=== PATIENT | female | born 1940 | race Caucasian/White ===

== ENCOUNTER 2018-10-26 22:08 | Inpatient (IN) | payer MEDICARE, MEDICAID ==
[~2018-10-26] VITALS: Ht 165.1 cm; Wt 62.6 kg
--- NOTE | 2018-10-26 22:30 | NUR ---
PATIENT BIB RA FROM HOME FOR C/O DIZZINESS THAT STARTED 1500 TODAY WITH NAUSEA AND ANXIETY. PATIENT STATES SHE WILL BE GOING TO [facility] FOR COLONSCOPY IN THE AM AND STARTED BOWEL PREP AT 1300 TODAY. PATIENT AMBULATED TO [facility] WITH ASSIST. ROBER ACKERMAN,SOB.
[2018-10-26] MEDS ORDERED: ONDANSETRON 4 MG/2 ML VIAL ONE (22:37)
[2018-10-26 22:43] LABS: BASOPHILS % (AUTO) 0.3 % (0.0-2.0); EOSINOPHILS % (AUTO) 0.2 % (0.0-7.0); HEMATOCRIT 40.5 % (31.2-41.9); HEMOGLOBIN 14.1 g/dL (10.9-14.3); LYMPHOCYTES # (AUTO) 1.9 K/uL (20.0-40.0); LYMPHOCYTES % (AUTO) 17.8 % (20.5-51.5); MEAN CORPUSCULAR HEMOGLOBIN 29.7 uug (24.7-32.8); MEAN CORPUSCULAR HGB CONC 35 g/dL (32.3-35.6); MEAN CORPUSCULAR VOLUME 85.5 fL (75.5-95.3); MONOCYTES # (AUTO) 0.9 K/uL (2.0-10.0); MONOCYTES % (AUTO) 8.2 % (0.0-11.0); NEUTROPHILS # (AUTO) 8.1 K/uL (1.8-8.9); NEUTROPHILS % (AUTO) 73.5 % (38.5-71.5); PLATELET COUNT (AUTO) 291 K/uL (179-408); RED BLOOD CELL COUNT(AUTO) 4.74 MIL/uL (3.63-4.92)
[2018-10-26] MEDS ORDERED: ONDANSETRON 4 MG/2 ML VIAL IV ONE (22:45)
[2018-10-26] MEDS ORDERED: LORAZEPAM 2 MG/1 ML VIAL IV ONE (22:45)
[2018-10-26] MEDS ORDERED: IV NORMAL SALINE 1000 ML BAG IV ONE (22:45)
[2018-10-26] MEDS ORDERED: LORAZEPAM 2 MG/1 ML VIAL ONE (22:47)
[2018-10-26 22:52] LABS: CARBON DIOXIDE 19 mmol/L (21-32); CHLORIDE 87 mmol/L (98-107); CREATININE 1.5 mg/dL (0.6-1.3); GLUCOSE 136 mg/dL (74-106); UREA NITROGEN, BLOOD 10 mg/dL (7-18)
[2018-10-26 22:53] LABS: POTASSIUM 2.8 mmol/L (3.5-5.1)
[2018-10-26 22:58] LABS: ALANINE AMINOTRANSFERASE 21 U/L (14-59); ALKALINE PHOSPHATASE 102 U/L (50-136); ASPARTATE AMINOTRANSFERASE 20 U/L (15-37); BILIRUBIN,DIRECT 0.3 mg/dL (0.0-0.2); BILIRUBIN,TOTAL 1.6 mg/dL (0.2-1.0); LIPASE 178 U/L (73-393); TOTAL PROTEIN, SERUM 7.8 g/dL (6.4-8.2)
[2018-10-26] MEDS ORDERED: POTASSIUM CHLORIDE 50 ML ONE (23:17)
[2018-10-26] MEDS: POTASSIUM CHLORIDE 50 ML IV SCH (23:18)
[2018-10-26] MEDS ORDERED: AMLO10TA7 PO (23:53)
[2018-10-26] MEDS ORDERED: CAND1TAB14 PO (23:53)
[2018-10-26] MEDS ORDERED: METH5TAB6 PO (23:53)
--- NOTE | 2018-10-27 00:07 | NUR ---
PAGED EPPIC PANEL. WAITING FOR CALL BACK FROM LUIS BOYD PATIENT EXPERIENCE COORDINATOR
[2018-10-27] MEDS: POTASSIUM CHLORIDE 50 ML IV SCH ×4 (00:11→02:37)
[2018-10-27] MEDS ORDERED: POTASSIUM CHLORIDE 150 ML ONE (00:13)
--- NOTE | 2018-10-27 00:39 | NUR ---
2nd call made out to [facility] to page Dr. Truong
--- NOTE | 2018-10-27 00:41 | NUR ---
DR SHIPLEY SPEAKING WITH DR MADRID
--- NOTE | 2018-10-27 01:25 | NUR ---
3RD AND 4TH BAG OF 10MEG KCL IVPB WAS GIVEN TO 3RD FLOOR NURSE GRACE TO FINISHED INFUSION.
--- NOTE | 2018-10-27 01:30 | NUR ---
ADMITTED PATIENT ON TELE FLOOR, UNDER THE CARE OF DR. KENT. BELONGING LIST DONE. PATIENT REFUSED IV KCL, COMPLAIN OF IV SITE PAIN, DISCONTINUE THE LEFT AC IV LINE, REINSERTED LEFT HAND. PATIENT ALERT WITH ANXIETY. CONT TO MONITOR.
[2018-10-27 02:00] VITALS: BP 125/71
[2018-10-27] MEDS ORDERED: ACETAMINOPHEN 325 MG TABLET PO PRN (02:00)
[2018-10-27] MEDS ORDERED: MORPHINE SULFATE 2 MG/1 ML DISP.SYRIN IV PRN (02:00)
[2018-10-27] MEDS ORDERED: ZOLPIDEM 5 MG TABLET PO PRN (02:00)
[2018-10-27] MEDS ORDERED: ONDANSETRON 4 MG/2 ML VIAL IV PRN (02:00)
[2018-10-27] MEDS ORDERED: POTASSIUM CHLORIDE 20 MEQ in IV NS 1000 ML 1,000 ML IV PRN (02:00)
[2018-10-27] MEDS ORDERED: ENALAPRILAT DIHYDRATE 1.25 MG/1 ML VIAL IV PRN (02:00)
--- NOTE | 2018-10-27 02:37 | NUR ---
NOTIFY DR. KENT THAT PATIENT REFUSED IV KCL 3RD & 4TH BAG. MD ORDER DISCONTINUE.
[2018-10-27 05:51] LABS: BASOPHILS % (AUTO) 0.1 % (0.0-2.0); EOSINOPHILS % (AUTO) 0.1 % (0.0-7.0); HEMATOCRIT 36.9 % (31.2-41.9); LYMPHOCYTES # (AUTO) 0.9 K/uL (20.0-40.0); LYMPHOCYTES % (AUTO) 11.4 % (20.5-51.5); MEAN CORPUSCULAR HEMOGLOBIN 29.9 uug (24.7-32.8); MEAN CORPUSCULAR HGB CONC 35 g/dL (32.3-35.6); MONOCYTES # (AUTO) 0.3 K/uL (2.0-10.0); MONOCYTES % (AUTO) 3.7 % (0.0-11.0); NEUTROPHILS % (AUTO) 84.7 % (38.5-71.5); PLATELET COUNT (AUTO) 227 K/uL (179-408); RED BLOOD CELL COUNT(AUTO) 4.35 MIL/uL (3.63-4.92); WHITE BLOOD COUNT (AUTO) 8.3 K/uL (3.8-11.8)
[2018-10-27 06:05] LABS: ALANINE AMINOTRANSFERASE 17 U/L (14-59); ALKALINE PHOSPHATASE 93 U/L (50-136); ASPARTATE AMINOTRANSFERASE 16 U/L (15-37); BILIRUBIN,TOTAL 1.3 mg/dL (0.2-1.0); CARBON DIOXIDE 26 mmol/L (21-32); CHLORIDE 95 mmol/L (98-107); GLUCOSE 123 mg/dL (74-106); MAGNESIUM 1.8 mg/dL (1.8-2.4); PHOSPHOROUS 3.7 mg/dL (2.5-4.9); POTASSIUM 3.4 mmol/L (3.5-5.1); TOTAL PROTEIN, SERUM 6.7 g/dL (6.4-8.2); UREA NITROGEN, BLOOD 8 mg/dL (7-18)
[2018-10-27 06:17] LABS: IRON, SERUM 66 ug/dL (50-175)
[2018-10-27 06:30] VITALS: BP 121/49
[2018-10-27] MEDS ORDERED: PANTOPRAZOLE SODIUM 40 MG TABLET.DR PO SCH (07:00)
[2018-10-27] MEDS ORDERED: POTASSIUM CHLORIDE 20 MEQ TAB.PRT.SR PO ONE (08:15)
[2018-10-27] MEDS ORDERED: METHIMAZOLE 5 MG TABLET PO SCH (09:00)
[2018-10-27 10:10] LABS: *BILIRUBIN,URIN NEGATIVE (NEGATIVE); *CLARITY,URINE CLEAR (CLEAR); *COLOR,URINE LIGHT YELLOW (YELLOW); *KETONES,URINE NEGATIVE (NEGATIVE); *UROBILINOGEN,URINE 0.2 E.U./dl (NORMAL); LEUKOCYTE ESTERASE ,URINE TRACE (NEGATIVE); NITRITE, URINE NEGATIVE (NEGATIVE); UGLUCOSE NEGATIVE (NEGATIVE)
[2018-10-27 10:11] LABS: *BLOOD, URINE TRACE (NEGATIVE)
[2018-10-27 10:20] LABS: BACTERIA,URINE NONE SEEN /HPF (NONE SEEN); RBC,URINE 0-3 /HPF (0-3); SQUAMOUS EPITHELIAL CELL,UR FEW /HPF (NONE SEEN); WBC,URINE 0-3 /HPF (0-3)
[2018-10-27] MEDS ORDERED: CEphaleXIN 500 MG CAPSULE PO SCH (11:00)
[2018-10-27 11:40] VITALS: BP 116/57
[2018-10-27] MEDS ORDERED: CEPH-570 PO (14:26)
--- NOTE | 2018-10-27 15:21 | NUR ---
Patient alert and oriented, no distress noted or complaints of pain. Tolerating regular diet, began at lunch time. No nausea/vomiting. Patient ambulatory with standby assist, steady. Keflex antibiotic given today, urine sample sent. 40mEq potassium given to replace K 3.4. Discharge instructions reviewed with patient, verbalized understanding. IV access and wristband removed. Going home via private car with brother.
[2018-10-27] MEDS ORDERED: AMLODIPINE 10 MG TABLET PO SCH (21:00)
== END 2018-10-27 15:25 | disposition home or self-care (01) | DRG 641 ==
LOC: ER 22:08 → TELE3 10-27 00:46
PROVIDERS: ADMIT Internal Medicine; ATTEND Nurse Practitioner Acute Care
DX: E87.6 Hypokalemia (principal); N39.0 Urinary tract infection, site not specified; E87.0 Hyperosmolality and hypernatremia; T50.2X5A Adverse effect of carbonic-anhydrase inhibitors, benzothiadiazides and other diuretics, initial encounter; Y92.019 Unspecified place in single-family (private) house as the place of occurrence of the external cause; E86.0 Dehydration; Z90.49 Acquired absence of other specified parts of digestive tract; E78.5 Hyperlipidemia, unspecified; E03.9 Hypothyroidism, unspecified; F41.0 Panic disorder [episodic paroxysmal anxiety]; I10 Essential (primary) hypertension; E87.1 Hypo-osmolality and hyponatremia; E27.8 Other specified disorders of adrenal gland; R19.7 Diarrhea, unspecified; R11.2 Nausea with vomiting, unspecified; R94.31 Abnormal electrocardiogram [ECG] [EKG]
CPT/HCPCS: 36415; 70030-TC; 83550; 83690; 83735; 84100; 85025; 87086; A4663; G0378; J2060; J2405; J3480; J7030; J7040